=== PATIENT | female | born 1965 | race Caucasian/White ===

== ENCOUNTER 2023-09-06 08:35 | Emergency (ER) | payer OTHER, SELFPAY ==
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
[2023-09-06 08:40] VITALS: BP 164/78; PULSE 92; RESP 16; TEMP 36.4; O2SAT 98
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
[2023-09-06] MEDS: HYDROcodone/acetaminophen (*CRX) 5-325 MG TABLET 1 TAB PO (10:41)
== END 2023-09-06 11:25 | disposition home or self-care (01) ==
PROVIDERS: Emergency Provider Student in an Organized Health Care Education/Training Program; PCP Student in an Organized Health Care Education/Training Program
DX: M19.012 Primary osteoarthritis, left shoulder (principal); N20.0 Calculus of kidney; M47.816 Spondylosis without myelopathy or radiculopathy, lumbar region; V49.40XA Driver injured in collision with unspecified motor vehicles in traffic accident, initial encounter
CPT/HCPCS: 72100; 73030; 73562; 99284; A9270

== ENCOUNTER 2025-04-19 08:24 | Outpatient (CLI) | payer OTHER, SELFPAY ==
--- NOTE | ~2025-04-19 | MM_ITS ---
EXAMINATION: MM screening geo BI w jeremie HISTORY: Screening TECHNIQUE: Craniocaudal and mediolateral oblique 3-D tomosynthesis images were obtained and synthetic 2-D images were generated. CAD analysis was submitted and interpreted. COMPARISON: Comparison to multiple prior studies sequentially, with oldest reviewed study dated 07/20. BREAST PARENCHYMAL COMPOSITION: There are scattered areas of fibroglandular density. FINDINGS: There is no evidence of suspicious mass, calcification, or architectural distortion to sug gest malignancy in either breast. IMPRESSION: 1. No mammographic evidence of malignancy. 2. Recommend routine screening mammography in one year. BI-RADS Category 1: Negative Reviewed, dictated and finalized at location B.
== END 2025-04-19 08:25 | disposition home or self-care (01) ==
LOC: MICIMG 08:25
PROVIDERS: PCP Student in an Organized Health Care Education/Training Program; Visit Provider Obstetrics & Gynecology
DX: Z12.31 Encounter for screening mammogram for malignant neoplasm of breast (principal)
CPT/HCPCS: 77063; 77067